=== PATIENT | female | born 1990 | race Caucasian/White ===

== ENCOUNTER 2017-03-27 17:31 | Emergency (ER) | payer MEDICAID ==
[~2017-03-27] VITALS: Ht 165.1 cm; Wt 60.3 kg
[2017-03-27 17:52] VITALS: BP 110/69
--- NOTE | 2017-03-27 18:51 | NUR ---
Pt taken to bed 10.
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
[2017-03-27] MEDS ORDERED: KETOROLAC 30 MG/ML VIAL IM ONE (19:25)
[2017-03-27] MEDS ORDERED: ONDANSETRON 4 MG ODT PO ONE (19:25)
[2017-03-27 20:24] VITALS: BP 109/66
--- NOTE | 2017-03-27 20:25 | NUR ---
Patient discharged with v/s stable. Written and verbal after care instructions given and explained. Patient alert, oriented and verbalized understanding of instructions. Ambulatory with steady gait. All questions addressed prior to discharge. ID band removed. Patient advised to follow up with PMD. Patient educated on indication of medication including possible reaction and side effects. Opportunity to ask questions provided and answered.
== END 2017-03-27 20:25 | disposition home or self-care (01) ==
LOC: MED 17:31
DX: S09.90XA Unspecified injury of head, initial encounter (principal); R11.0 Nausea; F07.81 Postconcussional syndrome; W22.03XA Walked into furniture, initial encounter; Y93.89 Activity, other specified; Y92.89 Other specified places as the place of occurrence of the external cause; Y99.8 Other external cause status
CPT/HCPCS: 70450; 81025; 99284; J1885; S0119